=== PATIENT | female | born 1930 | race Caucasian/White ===

== ENCOUNTER 2021-05-15 01:02 | Inpatient (IN) | payer MEDICARE, BC ==
[2021-05-15] VITALS (45 sets, daily range): BP systolic 78–201; BP diastolic 20–133
[~2021-05-15] VITALS: Ht 152.4 cm; Wt 61.2 kg
--- NOTE | 2021-05-15 02:45 | NUR ---
REGIONAL OPERATIONS DIRECTOR NOTE ADMIT 89 YEAR OLD WHITE FEMALE TO ICU UNIT AT ROOM 259 FROM [facility] ER FOR SCALPER OPERATOR TOMORROW MORNING EDGE GLUE MACHINE TENDER DR ACOSTA.ALERT ORIENTED X4 VERBALLY RESPONSIVE ON 2L OXYGEN VIA NASAL CANNULA, O2:96%,NPO IV SITE ON RIGHT HAND AND RIGHT FOREARM INTACT PATENT ON HEPARIN DRIP 913 UNIT/HR,CONTINENT TO BOWEL/BLADDER,SAFETY MEASURE IMPLEMENT CALL LIGHT WITHIN REACH CONTINUE TO MONITOR
[2021-05-15] MEDS ORDERED: HEPARIN INFUSION/D5W 500 ML IV PRN (03:30)
[2021-05-15] MEDS: hydrALAZINE HCL IV 20 MG VIAL IV PRN (03:40)
--- NOTE | 2021-05-15 03:40 | NUR ---
RN NOTE BP IS ELEVATED SINCE ADMISSION 180-[address] MCDOWELL,SHE ORDERED HYDRALAZINE 10 MG IV PUSH PRN NOTED AND CARRIED OUT .
[2021-05-15] MEDS: IV D5/0.45 NACL 1,000 ML IV PRN ×2 (03:58→16:38)
[2021-05-15] MEDS ORDERED: ACETAMINOPHEN 325 MG TABLET PO PRN (04:00)
[2021-05-15] MEDS ORDERED: MAG HYDROX/AL HYDROX/SIMETH 30 ML UDC PO PRN (04:00)
[2021-05-15] MEDS ORDERED: MORPHINE SULFATE INJ 2 MG/ML DISP.SYRIN IV PRN (04:00)
[2021-05-15] MEDS ORDERED: Z GUARD REMEDY 2 OZ OINT TP PRN (04:00)
[2021-05-15] MEDS ORDERED: ONDANSETRON HCL/PF 4 MG/2 ML VIAL IVP PRN (04:00)
[2021-05-15] MEDS ORDERED: MAGNESIUM HYDROXIDE 30 ML UDC PO PRN (04:00)
[2021-05-15] MEDS: HEPARIN INFUSION/D5W 500 ML IV PRN (04:13)
[2021-05-15] MEDS ORDERED: HEPARIN SODIUM, PORCINE 5000 UNITS/1 ML VIAL IV ONE (04:30)
[2021-05-15 04:42] LABS: BASOPHILS % (AUTO) 0.2 % (0.0-2.0); HEMATOCRIT 33 % (33-45); LYMPHOCYTES # (AUTO) 1.3 K/uL (0.8-4.8); MEAN CORPUSCULAR HGB CONC 33 g/dl (31.0-36.0); MEAN CORPUSCULAR VOLUME 90 fL (82-100); MONOCYTES # (AUTO) 0.4 K/uL (0.1-1.30); MONOCYTES % (AUTO) 3.6 % (2.0-12.0); NEUTROPHILS # (AUTO) 9.1 K/uL (1.8-8.9); NEUTROPHILS % (AUTO) 84.2 % (43.0-81.0); PLATELET COUNT (AUTO) 194 K/uL (150-450); RED BLOOD CELL COUNT(AUTO) 3.67 MIL/uL (4.0-5.2); WHITE BLOOD COUNT (AUTO) 10.8 K/uL (4.3-11.0)
[2021-05-15] MEDS ORDERED: hydrALAZINE HCL IV 20 MG VIAL IV PRN (05:00)
[2021-05-15 05:07] LABS: ALANINE AMINOTRANSFERASE 68 U/L (12-78); ALBUMIN 3.3 g/dL (3.4-5.0); ALKALINE PHOSPHATASE 117 U/L (46-116); ASPARTATE AMINOTRANSFERASE 112 U/L (15-37); BILIRUBIN,TOTAL 0.4 mg/dL (0.2-1.0); CARBON DIOXIDE 28 mmol/L (21-32); CHLORIDE 102 mmol/L (98-107); CREATININE 1.5 mg/dL (0.6-1.3); GLUCOSE 133 mg/dL (74-106); POTASSIUM 4.2 mmol/L (3.5-5.1); SODIUM SERUM 140 mmol/L (136-145); TOTAL PROTEIN, SERUM 7.6 g/dL (6.4-8.2); UREA NITROGEN, BLOOD 44 mg/dL (7-18)
[2021-05-15] MEDS ORDERED: HYDR-4077 PO (05:23)
[2021-05-15] MEDS ORDERED: CLON0.1T PO (05:23)
[2021-05-15] MEDS ORDERED: METO-357 PO (05:23)
[2021-05-15] MEDS ORDERED: VALS160T2 PO (05:23)
[2021-05-15] MEDS ORDERED: HYDR12.55 PO (05:23)
[2021-05-15] MEDS ORDERED: RIVA10TA PO (05:23)
[2021-05-15] MEDS ORDERED: LEVO50TA8 PO (05:23)
[2021-05-15] MEDS ORDERED: BRIM5DRO2 OP (05:23)
[2021-05-15] MEDS ORDERED: FLEC50TA2 PO (05:23)
[2021-05-15] MEDS ORDERED: ATOR20TA PO (05:23)
--- NOTE | 2021-05-15 05:25 | NUR ---
RN NOTE BP STILL IS HIGH 173/[address] MCDOWELL SHE ORDERED GIVE ANOTHER DOSE OF HYDRALAZINE 10MG 0.5ML PRN EVERY 6 HOURS FOR SBP>160 IF THAT DOES NOT WORK START CLONIDINE 0.1 [id number] PRN NOTED AND CARRIED OUT
--- NOTE | 2021-05-15 05:54 | NUR ---
RN NOTE RECEIVED CRITICAL LAB RESULT TROPONIN 9.[address] MCDOWELL CONTINUE TO MONITOR.
[2021-05-15] MEDS ORDERED: CLONIDINE HCL 0.1 MG TABLET PO PRN ×2 (06:30→07:00)
--- NOTE | 2021-05-15 07:02 | NUR ---
RN NOTE PATIENT REMAINS ON ALERT ORIENTED X4 ABLE TO MAKE NEEDS KNOWN,ON 2L OXYGEN VIA NASAL CANNULA O2:98% IV SITE IS ON RIGHT FOREARM AND RIGHT HAND INTACT PATENT ON HEPARIN DRIP 913 UNIT/HR ON IV HYDRATION D51/2NS 75CC/HR,PATIENT IN NPO FOR MORNING PROCEDURE KEPT CLEAN AND DRY ALL THE TIME,KEPT COMFORTABLE ALL NEEDS MET ENDORSE NEXT COMING SHIFT FOR CONTINUATION OF CARE.
--- NOTE | 2021-05-15 07:30 | NUR ---
RN NOTES RECEIVED PATIENT A&OX4. SATURATING 98% ON 2L NC NOT IN ANY DISTRESS. SR ON BEDSIDE MONITOR, PT HAS A PACEMAKER. SBP 196 AT THIS TIME, NIGHT RN ADMINISTERED PRN CLONIDINE. PERIPHERAL LINES X2. HEPARIN RUNNING AT 913 UNITS/HR. D5 1/2 NS AT 75 ML/HR. SAFETY CHECKS IN PLACE. WILL CONTINUE TO MONITOR.
--- NOTE | 2021-05-15 07:33 | NUR ---
RN NOTE HEPATIN DRIP BOLUS NOT GIVEN BECAUSE SHE RECEIVED AT [facility],CONTINUE TO MONITOR.
[2021-05-15 08:36] LABS: IRON, SERUM 46 ug/dl (50-175); TOTAL IRON BINDING CAPACITY 369 ug/dl (250-450)
[2021-05-15] MEDS ORDERED: FLECAINIDE ACETATE 50 MG TABLET PO SCH (09:00)
[2021-05-15] MEDS ORDERED: Medication Not On Formulary EA (Brimonidine Tartrate/Timolol (Combigan Eye Drops) 5 ML) OP SCH (09:00)
[2021-05-15 09:18] LABS: FERRITIN 72 ng/mL (8-388)
[2021-05-15] MEDS: hydrALAZINE HCL 50 MG TABLET PO SCH ×3 (09:42→17:00)
[2021-05-15] MEDS: PANTOPRAZOLE 40 MG VIAL IV SCH (09:42)
[2021-05-15] MEDS: LEVOTHYROXINE SODIUM 50 MCG TABLET PO SCH (09:42)
[2021-05-15] MEDS: FLECAINIDE ACETATE (100 MG) 100 MG TABLET PO SCH ×2 (09:43→17:13)
[2021-05-15] MEDS: TIMOLOL 0.5% SOLN OPHTH 5 ML BOTTLE EACHEYE SCH ×2 (09:44→17:13)
[2021-05-15] MEDS: NITROGLYCERIN 30 GM TUBE TP SCH ×2 (09:44→21:22)
[2021-05-15] MEDS: BRIMONIDINE TARTRATE OPHT SOLN 5 ML BOTTLE EACHEYE SCH ×2 (09:44→17:14)
--- NOTE | 2021-05-15 10:00 | NUR ---
RN NOTE HEPARIN DOSE ADJUSTED PER PROTOCOL. REPEAT APTT DUE 1600HRS.
--- NOTE | 2021-05-15 10:30 | NUR ---
RN NOTE ONE EPISODE OF VOMITING PREVIOUSLY INGESTED FOOD. ANTIEMETICS GIVEN WITH GOOD EFFECT. URINE INCONTINENT. PAD IN PLACE AND KEPT DRY. LINENS CHANGED.
[2021-05-15] MEDS: METOPROLOL TARTRATE 50 MG TABLET PO SCH ×3 (12:00→23:29)
--- NOTE | 2021-05-15 18:35 | NUR ---
RN NOTES PATIENT REMAINS A&OX4. SATURATING 99% ON 2L NC NOT IN ANY DISTRESS. SR ON BEDSIDE MONITOR, PT HAS A PACEMAKER. SBP WELL IN CONTROL AT THIS TIME,PERIPHERAL LINES X2. ML JAYSON IN PLACE. HEPARIN RUNNING AT 500 UNITS/HR WITH PTT DUE MIDNIGHT. D5 1/2 NS AT 75 ML/HR ON FLOW. SAFETY CHECKS IN PLACE. WILL ENDORSE TO NIGHT RN FOR CONTINUITY OF CARE.
--- NOTE | 2021-05-15 19:45 | NUR ---
RN NOTE RECEIVED PT WATCHING TV, ALERT AND ORIENTED X4, ON O2 VIA NC AT 2L. DENIES ANY SOB DENIES PAIN AT THIS TIME. PT ON HEPARIN DRIP AT 500U/HR AND D5 1/2 NS AT 75ML/HR, MIDLINE ON JAYSON AND IV ON RFA AND RHAND PATENT AND INTACT. ALL SAFETY MEASURES IN PLACE. CALL LIGHT WITHIN REACH. WILL CONTINUE TO MONITOR.
[2021-05-15] MEDS: ATORVASTATIN 10 MG TABLET PO SCH (21:21)
[2021-05-16] VITALS (39 sets, daily range): BP systolic 108–182; BP diastolic 20–134
--- NOTE | 2021-05-16 00:45 | NUR ---
RN NOTE APTT RESULTS 55.1. CONTINUE ON THE SAME RATE 500U/HR PER PROTOCOL. CHARGE NURSE MADE AWARE.
[2021-05-16 04:15] LABS: BASOPHILS # (AUTO) 0.1 K/uL (0.0-0.2); BASOPHILS % (AUTO) 0.6 % (0.0-2.0); HEMATOCRIT 28 % (33-45); HEMOGLOBIN 9.1 g/dL (11.5-14.8); LYMPHOCYTES # (AUTO) 1.3 K/uL (0.8-4.8); MEAN CORPUSCULAR HGB CONC 33 g/dl (31.0-36.0); MEAN CORPUSCULAR VOLUME 91 fL (82-100); MONOCYTES # (AUTO) 0.8 K/uL (0.1-1.30); MONOCYTES % (AUTO) 7.4 % (2.0-12.0); NEUTROPHILS # (AUTO) 8.6 K/uL (1.8-8.9); PLATELET COUNT (AUTO) 176 K/uL (150-450); RED BLOOD CELL COUNT(AUTO) 3.03 MIL/uL (4.0-5.2); WHITE BLOOD COUNT (AUTO) 10.8 K/uL (4.3-11.0)
[2021-05-16 04:33] LABS: CALCIUM, SERUM 8.2 mg/dL (8.5-10.1); CARBON DIOXIDE 28 mmol/L (21-32); CHLORIDE 99 mmol/L (98-107); CREATININE 1.5 mg/dL (0.6-1.3); GLUCOSE 196 mg/dL (74-106); MAGNESIUM 1.7 mg/dL (1.8-2.4); PHOSPHORUS 4.3 mg/dL (2.5-4.9); POTASSIUM 3.4 mmol/L (3.5-5.1); SODIUM SERUM 136 mmol/L (136-145); UREA NITROGEN, BLOOD 36 mg/dL (7-18)
[2021-05-16 04:38] LABS: CHOLESTEROL 132 mg/dL (<200); HDL CHOLESTEROL 63 mg/dL (40-60); LDL 60 mg/dL (0-99); TRIGLYCERIDES 83 mg/dL (30-150)
[2021-05-16] MEDS: hydrALAZINE HCL IV 20 MG VIAL IV PRN (04:45)
--- NOTE | 2021-05-16 04:45 | NUR ---
RN NOTE PT BP AT 174/73. PT DENIES ANY PAIN DENIES SOB. NOT IN ANY DISTRESS. HYDRALAZINE PRN GIVEN ORDERED. WILL CONTINUE TO MONITOR.
[2021-05-16] MEDS: IV D5/0.45 NACL 1,000 ML IV PRN ×2 (04:49→22:59)
[2021-05-16] MEDS: HEPARIN INFUSION/D5W 500 ML IV PRN (05:03)
[2021-05-16] MEDS: METOPROLOL TARTRATE 50 MG TABLET PO SCH ×4 (06:22→23:03)
--- NOTE | 2021-05-16 07:10 | NUR ---
RN NOTE PT SLEEPING, AROUSES EASILY. CONTINUE ON O2 AT 2L. NO RESP DISTRESS NOTED, DENIES ANY SOB. PTS BP WENT DOWN TO 140S. DENIES ANY PAIN. TELE MONITOR SHOWS AV PACING. CONTINUE ON IVF D5 1/2NS AT 75ML AND HEPARIN DRIP AT 500U/HR. NO SIGNS OF BLEEDING WERE NOTED. ALL SAFETY MEASURES MAINTAINED. CALL LIGHT WITHIN REACH AT ALL TIMES. KEPT CLEAN AND DRY. ENDORSED TO NEXT SHIFT NURSE FOR MANINDER.
--- NOTE | 2021-05-16 07:30 | NUR ---
OPENING NOTE: PT ALERT OX3, UNKNOWN WHEN HEART CATH IS TO BE DONE. PT DENIES CHEST PAIN OR ANY PAIN AT THIS TIME. PT ON HEPARIN GTT AT 500 UNITS/HR. PT CHECKED ON HOURLY AND PRN BY NURSING STAFF.
[2021-05-16] MEDS: BRIMONIDINE TARTRATE OPHT SOLN 5 ML BOTTLE EACHEYE SCH ×2 (08:24→18:08)
[2021-05-16] MEDS: PANTOPRAZOLE 40 MG VIAL IV SCH (08:25)
[2021-05-16] MEDS: TIMOLOL 0.5% SOLN OPHTH 5 ML BOTTLE EACHEYE SCH ×2 (08:25→18:08)
[2021-05-16] MEDS: FLECAINIDE ACETATE (100 MG) 100 MG TABLET PO SCH ×2 (08:26→18:09)
[2021-05-16] MEDS: NITROGLYCERIN 30 GM TUBE TP SCH ×2 (08:26→21:59)
[2021-05-16] MEDS: hydrALAZINE HCL 50 MG TABLET PO SCH ×3 (08:26→18:09)
[2021-05-16] MEDS: LEVOTHYROXINE SODIUM 50 MCG TABLET PO SCH (08:27)
[2021-05-16] MEDS ORDERED: hydrALAZINE HCL 50 MG TABLET PO SCH (09:00)
--- NOTE | 2021-05-16 09:06 | NUR ---
PT SIGNED CONSENT FOR LEFT HEART CATH PER REQUEST FROM DR. MORENO. PT'S PTT IS 52.3, THERAPEUTIC PER ORDERS, NO CHANGE IN GTT. NEXT PTT IN AM
[2021-05-16] MEDS ORDERED: IV SET PRIMARY PUMP SET 1 EA INFUS.SET MC ONE (09:22)
[2021-05-16] MEDS ORDERED: IV NS 0.9% 1,000 ML ONE (09:22)
[2021-05-16] MEDS ORDERED: LIDOCAINE HCL/MPF 1% 30 ML VIAL IJ ONE (09:22)
[2021-05-16] MEDS ORDERED: IODIXANOL 150 ML IV ONE (09:22)
[2021-05-16] MEDS ORDERED: NITROGLYCERIN IN 5 % DEXTROSE 250 ML IV ONE (09:22)
--- NOTE | 2021-05-16 09:36 | NUR ---
PT LEFT FOR VISUAL EDUCATION DIRECTOR AT THIS TIME. HEPARIN GTT HELD PER DR MORENO. MAG AND POTASSIUM DOSES WILL BE GIVEN AFTER VISUAL EDUCATION DIRECTOR.
[2021-05-16] MEDS ORDERED: MIDAZOLAM HCL 2 MG/2ML VIAL ONE (09:59)
[2021-05-16] MEDS ORDERED: methylPREDNISolone SOD SUCC 125 MG/2ML VIAL ONE (09:59)
[2021-05-16] MEDS ORDERED: FENTANYL PF 100MCG/2ML AMPUL ONE (10:01)
[2021-05-16] MEDS ORDERED: diphenhydrAMINE HCL 50 MG/ML VIAL ONE (10:37)
[2021-05-16] MEDS ORDERED: HEPARIN SODIUM, PORCINE 5000 UNITS/1 ML VIAL ONE (10:41)
[2021-05-16] MEDS ORDERED: HEPARIN SODIUM, PORCINE 1,000 UNIT/ML VIAL ONE (10:41)
[2021-05-16] MEDS ORDERED: IODIXANOL 320MG/ML 50 ML IV ONE (10:42)
[2021-05-16] MEDS ORDERED: NICARDIPINE HCL 25 MG/10 ML VIAL IV ONE (10:47)
[2021-05-16] MEDS ORDERED: TICAGRELOR 90 MG TABLET PO ONE (10:49)
--- NOTE | 2021-05-16 11:25 | NUR ---
PT RETURNED FROM HEART CATH AT THIS TIME. PT CALM, RESTING. TR BAND ON RIGHT WRIST, GOOD PULSE TO RIGHT WRIST. PER REPORT AND MD ORDERS TR BAND WAS APPLIED AT 1104, AIR CAN START TO BE REMOVED AT 1304 PER PROTOCOL. PT DENIES PAIN OR NEEDS AT THIS TIME. HEPARIN GTT DC'D PER DR MORENO. DR VIRGEN CONTACTED REGARDING STARTING PATIENT ON A DIET. PT CHECKED ON HOURLY AND PRN BY NURSING STAFF.
[2021-05-16] MEDS: Magnesium 1GM/D5W 100ML PREMIX 100 ML IV SCH ×2 (11:57→13:00)
[2021-05-16] MEDS: POTASSIUM CHLORIDE 20 MEQ TAB.PRT.SR PO SCH ×2 (11:57→13:00)
[2021-05-16] MEDS ORDERED: POTASSIUM CL. PREMIX PERIPHER. 50 ML IV SCH (12:00)
[2021-05-16] MEDS: SOD FERRIC GLUC 125 MG in IV NS 0.9% 100 ML IV SCH (18:07)
--- NOTE | 2021-05-16 19:18 | NUR ---
END OF SHIFT NOTE: TR BAND REMOVED WITHOUT DIFFICULTY PER MD ORDERS, SOME OOZING CALLED FOR AIR TO BE REINSTILLED AT ONE POINT BUT TR BAND WAS ULTIMATELY REMOVED AT 1720, TEGADERM APPLIED. NO SWELLING OR BLEEDING NOTED. PT DENIES PAIN. HEPARIN GTT WAS DC'D AFTER HEART CATH. PT CHECKED ON HOURLY AND PRN BY NURSING STAFF.
--- NOTE | 2021-05-16 19:40 | NUR ---
RN NOTES RECEIVED PATIENT ASLEEP ON BED. NO ACUTE RESPIRATORY DISTRESS TOLERATED O2 2LPM VIA NC SATURATION 97%. AV PACING ON MONITOR. S/P CARDIAC CATH THIS MORNING , S/P TR BAND REMOVED. NO ACTIVE BLEEDING PRESENT. DENIES CHEST PAIN OR SOB. IV SITE ON JAYSON MIDLINE AND RIGHT HAND WITH D51/2 NS @ 75 ML/HR TOLERATED WELL. KEPT PT COMFORTABLE .
[2021-05-16] MEDS: ATORVASTATIN 10 MG TABLET PO SCH (21:57)
[2021-05-17] VITALS (20 sets, daily range): BP systolic 97–187; BP diastolic 30–88
[2021-05-17] MEDS: hydrALAZINE HCL IV 20 MG VIAL IV PRN (03:51)
[2021-05-17] MEDS: METOPROLOL TARTRATE 50 MG TABLET PO SCH ×4 (06:21→23:53)
[2021-05-17] MEDS: CLONIDINE HCL 0.1 MG TABLET PO PRN (06:22)
--- NOTE | 2021-05-17 07:27 | NUR ---
RN NOTES PATIENT ASLEEP WELL ON BED. BREATHING EVEN AND UNLABORED. DENIES PAIN. AFEBRILE. NO ACTIVE BLEEDING PRESENT FROM S/P CARDIAC CATH APPROACHING RIGHT WRIST. NO SIGNIFICANT CHANGE OF CONDITION TRUOGHOUT THE SHIFT. HYPERTENTION SBP >170-180'S WITH PRN ORDERED ADMISNITERED ORDERED. WILL CONTINUE POC.
--- NOTE | 2021-05-17 07:30 | NUR ---
OPENING NOTE: REPORT RECEIVED FROM SARA ERIC. PT ALERT OX3, ON 15L NON REBREATHER. NO DRIPS INFUSING AT THIS TIME. PT CHECKED ON HOURLY AND PRN BY NURSING STAFF. Addendum: 05/17/21 at 1027 by SAVANAH FELIZ RN WRONG PATIENT, DISREGARD
--- NOTE | 2021-05-17 07:30 | NUR ---
OPENING NOTE: REPORT RECEIVED FROM ELEAZAR ERIC. PT ALERT OX3, SLEPT WELL PER REPORT. PT ON 2LNC. PT CHECKED ON HOURLY AND PRN BY NURSING STAFF.
[2021-05-17 08:14] LABS: BASOPHILS % (AUTO) 0.2 % (0.0-2.0); HEMATOCRIT 27 % (33-45); HEMOGLOBIN 8.9 g/dL (11.5-14.8); LYMPHOCYTES # (AUTO) 0.5 K/uL (0.8-4.8); LYMPHOCYTES % (AUTO) 5.5 % (20.0-44.0); MEAN CORPUSCULAR HGB CONC 34 g/dl (31.0-36.0); MEAN CORPUSCULAR VOLUME 90 fL (82-100); MONOCYTES # (AUTO) 0.4 K/uL (0.1-1.30); MONOCYTES % (AUTO) 4.3 % (2.0-12.0); NEUTROPHILS # (AUTO) 8.8 K/uL (1.8-8.9); PLATELET COUNT (AUTO) 180 K/uL (150-450); RED BLOOD CELL COUNT(AUTO) 2.95 MIL/uL (4.0-5.2); WHITE BLOOD COUNT (AUTO) 9.7 K/uL (4.3-11.0)
[2021-05-17] MEDS: BRIMONIDINE TARTRATE OPHT SOLN 5 ML BOTTLE EACHEYE SCH ×2 (08:36→17:12)
[2021-05-17] MEDS: LEVOTHYROXINE SODIUM 50 MCG TABLET PO SCH (08:37)
[2021-05-17] MEDS: TIMOLOL 0.5% SOLN OPHTH 5 ML BOTTLE EACHEYE SCH ×2 (08:37→17:12)
[2021-05-17] MEDS: hydrALAZINE HCL 50 MG TABLET PO SCH ×3 (08:39→17:00)
[2021-05-17] MEDS: ISOSORBIDE DINITRATE (20MG) 20 MG TABLET PO SCH ×2 (08:39→17:07)
[2021-05-17 08:40] LABS: ALBUMIN 2.7 g/dL (3.4-5.0); BILIRUBIN,TOTAL 0.3 mg/dL (0.2-1.0); CREATININE 1.3 mg/dL (0.6-1.3); PHOSPHORUS 2.7 mg/dL (2.5-4.9); POTASSIUM 4.1 mmol/L (3.5-5.1); TOTAL PROTEIN, SERUM 6.8 g/dL (6.4-8.2)
[2021-05-17] MEDS: FLECAINIDE ACETATE (100 MG) 100 MG TABLET PO SCH ×2 (08:40→17:00)
[2021-05-17] MEDS: PANTOPRAZOLE 40 MG TABLET.DR PO SCH (08:40)
[2021-05-17 08:48] LABS: CALCIUM, SERUM 8.1 mg/dL (8.5-10.1); MAGNESIUM 2.5 mg/dL (1.8-2.4)
[2021-05-17] MEDS ORDERED: TICAGRELOR 90 MG TABLET PO SCH (09:00)
[2021-05-17] MEDS: TICAGRELOR 90 MG TABLET PO SCH ×2 (09:44→17:09)
--- NOTE | 2021-05-17 13:00 | NUR ---
PT AMBULATED IN HALLS WITH 2L O2 ASSISTED BY RN AND PT'S SON LUH. PT MADE 1 LAP AROUND THE ICU WITHOUT DIFFICULTY ONLY GETTING TIRED RIGHT BEFORE SHE REACHED HER ROOM. PT HELPED BACK TO BED WITH ALL CLEAN BEDDING. PT DENIED PAIN OR LIGHTHEADEDNESS DURING WALK.
--- NOTE | 2021-05-17 14:17 | NUR ---
PHONE REPORT GIVEN TO MARTELL ERIC FOR TRANSPORT TO ROOM 306-1
--- NOTE | 2021-05-17 14:30 | NUR ---
PT TRANSFERRED TO TELE BED 306-1 IN BED WITH 2 RN'S AND STUDENT NURSE TRANSPORTING PATIENT WITH ALL PATIENT BELONGINGS AND PT EYE DROPS. BELONGINGS LIST REVIEWED BY BOTH DRIVABILITY TECHNICIAN AND MARTELL RN, RECEIVING RN. MARTELL ERIC IN PT ROOM WHEN DRIVABILITY TECHNICIAN LEFT ROOM.
[2021-05-17] MEDS: SOD FERRIC GLUC 125 MG in IV NS 0.9% 100 ML IV SCH (14:42)
--- NOTE | 2021-05-17 14:55 | NUR ---
TELE/RN NOTES RECEIVED REPORT FROM SAVANAH ICU NURSE. PATIENT IS ALERT AND ORIENTED X4. PATIENT IS ON 2 L OXYGEN VIA NASAL CANNULA SATURATING WELL. PATIENT IN NO APPARENT RESPIRATORY DISTRESS NOTED. NO COMPLAINED OF PAIN AT THIS TIME. WILL CONTINUE TO MONITOR.
--- NOTE | 2021-05-17 18:55 | NUR ---
TELE/RN CLOSING PATIENT IS ON BED ALERT AND ORIENTED X4. PATIENT IS ON 2L OXYGEN VIA NASAL CANNULA SATURATION 98%. PATIENT IN NO APPARENT RESPIRATORY DISTRESS NOTED. NO COMPLAINED OF PAIN NOTED AT THIS TIME. SEEN AND EXAMINED BY MD WITH ORDERS MADE AND CARRIED OUT ALL DUE MEDICATIONS WAS GIVEN. IV ACCESS AT RIGHT UPPER ARM MIDLINE RIGHT HAND # 20 G PATENT AND INTACT. SAFETY PRECAUTION WAS IN PLACED, BED IN LOWEST POSITION AND LOCKED X2. CALL LIGHT WITHIN REACH. WILL ENDORSED TO PLANT FACILITIES TECHNICIAN FOR MANINDER.
--- NOTE | 2021-05-17 19:30 | NUR ---
TELERN AWAKE, ON THE PHONE. PRIVACY PROVIDED. TO CONTINUE.
--- NOTE | 2021-05-17 20:46 | NUR ---
TELERN FULLY AWAKE, ALL NEEDS ATTENDED. A/O X4 PLAN OF CARE AND MEDICATION REGIMEN DISCUSSED WITH PATIENT WELL UNDERSTOOD. A PACING ON THE MONITOR RATE OF 60. NO SOB, PAINFREE, REMINDED TO CALL STAFF FOR ANY ASSISTANCE OR DISCOMFORTS. CALL LIGHT WITHIN REACH. CONTINUED MONITORING.
[2021-05-17] MEDS: ATORVASTATIN 10 MG TABLET PO SCH (22:33)
[2021-05-17] MEDS: ZOLPIDEM TARTRATE 5 MG TABLET PO PRN (22:47)
[2021-05-18] VITALS: BP 127/59
--- NOTE | 2021-05-18 02:00 | NUR ---
TELERN REMAINS AV PACING ON THE MONITOR. PAINFREE, STABLE.
--- NOTE | 2021-05-18 02:15 | NUR ---
TELERN RECEIVED VIA BED ACCPD BY RESPIRATORY THERAPIST, VENT DEPENDENT PATIENT NONVERBAL. NO RESP DISTRESS. PER MONITOR ST 0N 110s.. REPOSITIONED, VENT SETTINGS FOLLOWS: PORTEX 8, AC 18, TV 450, FI02 30%, AND P5. WILL RESUME GT FEEDINGS AT 5 AM SCHEDULED. F/C TO GRAVITY, PT ON LINE HOLIDAY TILL NEW HD CATH REPLACE. CONTINUED MONITORING. Addendum: 05/18/21 at 0259 by JONI FROST RN DISREGARD ABOVE DOCUMENTATION. ABOVE DOCUMENTATION FOR ANOTHER PATIENT.
[2021-05-18 04:00] VITALS: BP 174/74
[2021-05-18] MEDS: METOPROLOL TARTRATE 50 MG TABLET PO SCH ×3 (06:06→17:10)
--- NOTE | 2021-05-18 06:41 | NUR ---
TELERN SEEN BY MD, POSSIBLE DISCHARGE TODAY.
[2021-05-18 06:44] LABS: BASOPHILS % (AUTO) 0.1 % (0.0-2.0); HEMATOCRIT 25 % (33-45); HEMOGLOBIN 8.3 g/dL (11.5-14.8); LYMPHOCYTES # (AUTO) 0.6 K/uL (0.8-4.8); LYMPHOCYTES % (AUTO) 4.9 % (20.0-44.0); MEAN CORPUSCULAR HGB CONC 33 g/dl (31.0-36.0); MEAN CORPUSCULAR VOLUME 90 fL (82-100); MONOCYTES # (AUTO) 0.8 K/uL (0.1-1.30); NEUTROPHILS # (AUTO) 10.5 K/uL (1.8-8.9); PLATELET COUNT (AUTO) 215 K/uL (150-450); WHITE BLOOD COUNT (AUTO) 11.9 K/uL (4.3-11.0)
[2021-05-18 07:48] LABS: ALBUMIN 2.6 g/dL (3.4-5.0); BILIRUBIN,TOTAL 0.5 mg/dL (0.2-1.0); CALCIUM, SERUM 8.3 mg/dL (8.5-10.1); CREATININE 1.3 mg/dL (0.6-1.3); MAGNESIUM 2.2 mg/dL (1.8-2.4); PHOSPHORUS 2.5 mg/dL (2.5-4.9); TOTAL PROTEIN, SERUM 6.6 g/dL (6.4-8.2)
[2021-05-18] MEDS: TIMOLOL 0.5% SOLN OPHTH 5 ML BOTTLE EACHEYE SCH ×2 (08:00→17:22)
--- NOTE | 2021-05-18 08:00 | NUR ---
RN OPENING NOTE PT IS AWAKE IN BED. ON 2L NC WITH SOB ON EXERTION. NO RESPIRATORY DISTRESS. A/O X4 AND SPANISH SPEAKING. NO COMPLAINT OF PAIN OR NAUSEA. ON MECHANICAL INSULATOR. NO EDEMA PRESENT. ON BEDREST WITH DIAPER PRESENT. UNSTEADY GAIT. SKIN IS INTACT. IV PRESENT ON JAYSON MIDLINE AND R HAND 20G. FLUSHES WELL. LABS AND ORDERS REVIEWED. SAFETY MEASURES IN PLACE. SIDE RAILS RAISED. BED LOWERED. CALL LIGHT WITHIN REACH. WILL CONTINUE TO MONITOR.
[2021-05-18] MEDS: CLONIDINE HCL 0.1 MG TABLET PO PRN (08:03)
[2021-05-18] MEDS: VALSARTAN 80 MG TABLET PO SCH (08:04)
[2021-05-18] MEDS: ISOSORBIDE DINITRATE (20MG) 20 MG TABLET PO SCH ×2 (08:04→17:10)
[2021-05-18 08:05] VITALS: BP 173/78
[2021-05-18] MEDS: PANTOPRAZOLE 40 MG TABLET.DR PO SCH (08:05)
[2021-05-18] MEDS: LEVOTHYROXINE SODIUM 50 MCG TABLET PO SCH (08:05)
[2021-05-18] MEDS: hydrALAZINE HCL 50 MG TABLET PO SCH ×3 (08:06→17:10)
[2021-05-18] MEDS: TICAGRELOR 90 MG TABLET PO SCH ×2 (08:07→17:12)
[2021-05-18] MEDS: BRIMONIDINE TARTRATE OPHT SOLN 5 ML BOTTLE EACHEYE SCH ×2 (09:00→17:22)
[2021-05-18] MEDS: FLECAINIDE ACETATE (100 MG) 100 MG TABLET PO SCH ×2 (11:21→17:13)
[2021-05-18 12:00] VITALS: BP 137/86
[2021-05-18] MEDS: SOD FERRIC GLUC 125 MG in IV NS 0.9% 100 ML IV SCH (13:51)
[2021-05-18 15:55] VITALS: BP 144/66
--- NOTE | 2021-05-18 18:41 | NUR ---
RN CLOSING NOTE PT IS AWAKE IN BED. ON 2L NC WITH SOB ON EXERTION. NO RESPIRATORY DISTRESS. A/O X4 AND YORUBA SPEAKING. NO COMPLAINT OF PAIN OR NAUSEA. ON VIOLIN RESTORER. NO EDEMA PRESENT. ON BEDREST WITH DIAPER PRESENT. UNSTEADY GAIT. COMMODE PLACED AT BEDSIDE. SKIN IS INTACT. IV PRESENT ON JAYSON MIDLINE AND R HAND 20G. FLUSHES WELL. LABS AND ORDERS REVIEWED. SAFETY MEASURES IN PLACE. SIDE RAILS RAISED. BED LOWERED. CALL LIGHT WITHIN REACH. REPORT TO BE GIVEN TO NIGHT NURSE FOR MANINDER.
--- NOTE | 2021-05-18 19:30 | NUR ---
STRIPER SPRAY GUN NOTES RECEIVED LYING COMFORTABLY ON BED,ON LEFT SIDE POSITION,BREATHING REGULAR,NOT IN ANY FORM OF DISTRESS,WITH RIGHT UPPER ARM MIDLINE,RIGHT HAND SALINE LOCK,BOTH INTACT AND PATENT.INCONTINENT OF B/B BUT SOMETIMES SHE GOES TO THE BATHROOM WITH ASSIST.FALL RISK,FALL PRECAUTION OBSERVED,BED ON LOWEST POSITION AND LOCKED,CALL LIGHT IN REACH,NEEDS ANTICIPATED.
--- NOTE | 2021-05-18 19:52 | NUR ---
RETAIL SALES TEAMMATE NOTES AV-PACING ON TELE MONITOR,PACER ON LEFT UPPER CHEST WALL.
[2021-05-18 20:00] VITALS: BP 107/69
[2021-05-18] MEDS: ATORVASTATIN 10 MG TABLET PO SCH (21:34)
[2021-05-19] VITALS: BP 141/60
[2021-05-19] MEDS: METOPROLOL TARTRATE 50 MG TABLET PO SCH ×5 (00:01→23:25)
[2021-05-19] MEDS: CLONIDINE HCL 0.1 MG TABLET PO PRN (03:42)
--- NOTE | 2021-05-19 03:42 | NUR ---
BULK SAUSAGE CASING TIER OFF NOTES BP 168/70.HR-64,MEDICATED WITH CLONIDINE 0.1MG PO FOR SBP ABOVE 160 WITH ORDER
[2021-05-19 04:00] VITALS: BP 168/70
--- NOTE | 2021-05-19 05:55 | NUR ---
DOCTOR NATUROPATHIC NOTES BP THIS TIME 153/66,HR-66 DUE LOPRESSOR 50MG PO GIVEN,TAKEN WELL.
--- NOTE | 2021-05-19 06:15 | NUR ---
LEARNING COACH NOTES FAIRLY RESTED AT NIGHT,BLOOD PRESSURE WENT DOWN TO 153/66.NO SOB NOTED,AFEBRILE.FOR DISCHARGE PLANNING GOING TO ARU OR SNF.
[2021-05-19] MEDS ORDERED: CEFEPIME 2 GM in IV D5W 100 ML IV SCH (07:00)
[2021-05-19 08:00] VITALS: BP 148/79
[2021-05-19] MEDS: FLECAINIDE ACETATE (100 MG) 100 MG TABLET PO SCH ×2 (08:02→17:25)
[2021-05-19] MEDS: PANTOPRAZOLE 40 MG TABLET.DR PO SCH (08:09)
[2021-05-19] MEDS: LEVOTHYROXINE SODIUM 50 MCG TABLET PO SCH (08:09)
[2021-05-19] MEDS: CEFEPIME 1 GM in IV D5W 50 ML IV SCH (09:03)
[2021-05-19] MEDS: TIMOLOL 0.5% SOLN OPHTH 5 ML BOTTLE EACHEYE SCH ×2 (09:08→17:26)
[2021-05-19] MEDS: BRIMONIDINE TARTRATE OPHT SOLN 5 ML BOTTLE EACHEYE SCH ×2 (09:08→17:25)
[2021-05-19] MEDS: hydrALAZINE HCL 50 MG TABLET PO SCH ×3 (09:09→17:23)
[2021-05-19] MEDS: VALSARTAN 80 MG TABLET PO SCH (09:10)
[2021-05-19] MEDS: ISOSORBIDE DINITRATE (20MG) 20 MG TABLET PO SCH ×2 (09:10→17:24)
[2021-05-19] MEDS: TICAGRELOR 90 MG TABLET PO SCH ×2 (09:44→17:24)
[2021-05-19] MEDS: VANCOMYCIN 1 GM in IV D5W 250ml IV SCH (09:44)
--- NOTE | 2021-05-19 10:12 | NUR ---
RN OPENING NOTE PT IS AWAKE IN BED. ON 2L NC WITH SOB ON EXERTION. NO RESPIRATORY DISTRESS. A/O X4 AND MALIAN SPEAKING. NO COMPLAINT OF PAIN OR NAUSEA. ON STEEL WHEEL ENGRAVER. NO EDEMA PRESENT. ON BEDREST WITH COMMODE AT BEDSIDE. UNSTEADY GAIT. SKIN IS INTACT. IV PRESENT ON JAYSON MIDLINE AND R HAND 20G. FLUSHES WELL. LABS AND ORDERS REVIEWED. SAFETY MEASURES IN PLACE. SIDE RAILS RAISED. BED LOWERED. CALL LIGHT WITHIN REACH. WILL CONTINUE TO MONITOR.
[2021-05-19] MEDS: ENSURE ENLIVE 237 ML LIQUID (VANILLA) PO SCH ×2 (12:02→17:26)
[2021-05-19] MEDS: SOD FERRIC GLUC 125 MG in IV NS 0.9% 100 ML IV SCH (13:33)
[2021-05-19 16:00] VITALS: BP 132/87
--- NOTE | 2021-05-19 18:23 | NUR ---
RN CLOSING NOTE PT IS AWAKE IN BED. ON 2L NC WITH SOB ON EXERTION. NO RESPIRATORY DISTRESS. A/O X4 AND ROMANSH SPEAKING. NO COMPLAINT OF PAIN OR NAUSEA. ON SCRAPE GATHERER. NO EDEMA PRESENT. ON BEDREST WITH DIAPER PRESENT. UNSTEADY GAIT. COMMODE PLACED AT BEDSIDE. SKIN IS INTACT. IV PRESENT ON JAYSON MIDLINE AND R HAND 20G. FLUSHES WELL. LABS AND ORDERS REVIEWED. SAFETY MEASURES IN PLACE. SIDE RAILS RAISED. BED LOWERED. CALL LIGHT WITHIN REACH. REPORT TO BE GIVEN TO NIGHT NURSE FOR MANINDER.
--- NOTE | 2021-05-19 19:15 | NUR ---
ASSISTANT DIRECTOR OF PLANT OPERATIONS NOTES RECEIVED ON BED ON HIGH FOWLERS POSITION, DOOZING OFF,EASILY AROUSABLE TO VERBAL STIMULI,BREATHING NON LABORED,O2 IN USED AT 2L/NC TO KEEP O2 SAT ABOVE 90%.RIGHT UPPER ARM MIDLINE INTACT AND PATENT.NOTED CONSUMED ONLY ABOUT 25% ON HER DINNER FOOD.ENCOURAGED TO DRINK HER FOOD SUPPLEMENT ENSURE ORDERED.FALL PRECAUTION OBSERVED,BED ON LOWEST POSITION AND LOCKED.BED ALAR, TRIGGERED.CALL LIGHT IN REACH,NEEDS ANTICIPATED.
[2021-05-19 20:00] VITALS: BP 98/50
--- NOTE | 2021-05-19 20:30 | NUR ---
ORTHOPHOTOGRAPHY TECHNICIAN NOTES AV PACING ON TELE MONITOR,RATE-60
[2021-05-19 20:55] VITALS: BP 98/50
[2021-05-19] MEDS: ATORVASTATIN 10 MG TABLET PO SCH (21:26)
--- NOTE | 2021-05-19 21:45 | NUR ---
MANAGER STORAGE NOTES AWAKE THIS TIME WATCHING TV PROGRAM.DUE PO MEDS ADMINISTERED,NOTED SHE FINISHED HER ENSURE 1 BOTTLE.
[2021-05-19] MEDS: ZOLPIDEM TARTRATE 5 MG TABLET PO PRN (23:29)
--- NOTE | 2021-05-19 23:29 | NUR ---
RETAIL STORE ASSISTANT NOTES C/O INSOMNIA,AMBIEN 5MG PO GIVEN ORDERED PRN FOR SLEEP
[2021-05-20] VITALS (8 sets, daily range): BP systolic 116–161; BP diastolic 50–82
[2021-05-20] MEDS: VANCOMYCIN 1 GM in IV D5W 250ml IV SCH ×2 (03:22→21:09)
[2021-05-20] MEDS: METOPROLOL TARTRATE 50 MG TABLET PO SCH ×4 (05:15→23:44)
--- NOTE | 2021-05-20 06:21 | NUR ---
ACCOUNTS PAYABLES CLERK NOTES SLEPT 4 HOURS WITH AMBIEN,DENIES PAIN DISCOMFORTS,ABLE TO TURN FORM SIDE TO SIDE,IV ABX TOLERATED WELL.FOR D/C PLANNING EITHER ARU VS SNF.IN NO ACUTE DISTRESS.
--- NOTE | 2021-05-20 07:07 | NUR ---
MS JEANETH OPENING NOTES PT RECEIVED IN BED AWAKE A/O X4. ABLE TO MAKE NEEDS KNOWN, DENIES PAIN OR ANY DISCOMFORTS AT THIS TIME. ON VIA N/C AT 2LPM, TOLERATING WELL WITH NO SOB NOTED. JAYSON MIDLINE INTACT, PATENT AND FLUSHES WELL. SAFETY MEASURES IN PLACE: BED IN LOWEST LOCKED POSITION, SIDE-RAILS UP X2 AND CALL LIGHT WITHIN REACH. WILL CONTINUE TO MONITOR. Addendum: 05/20/21 at 0720 by MAXIMO JUSTICE RN CORRECTION: PT IS ON EXTERNAL CLINICAL PHARMACY COORDINATOR WITH CURRENT READING OF A-PACING WITH HR ON THE 60'S, NO C/O CARDIAC DISTRESS VOICED AT THIS TIME. WILL CONTINUE TO MONITOR.
[2021-05-20 07:30] LABS: CALCIUM, SERUM 8.2 mg/dL (8.5-10.1); CREATININE 1.3 mg/dL (0.6-1.3); POTASSIUM 3.5 mmol/L (3.5-5.1)
[2021-05-20] MEDS: PANTOPRAZOLE 40 MG TABLET.DR PO SCH (07:51)
[2021-05-20] MEDS: CEFEPIME 1 GM in IV D5W 50 ML IV SCH (07:55)
[2021-05-20] MEDS: ENSURE ENLIVE 237 ML LIQUID (VANILLA) PO SCH ×3 (08:05→17:08)
[2021-05-20] MEDS: TICAGRELOR 90 MG TABLET PO SCH ×2 (08:11→16:35)
[2021-05-20] MEDS: FLECAINIDE ACETATE (100 MG) 100 MG TABLET PO SCH ×2 (08:11→16:34)
[2021-05-20] MEDS: LEVOTHYROXINE SODIUM 50 MCG TABLET PO SCH (08:11)
[2021-05-20] MEDS: TIMOLOL 0.5% SOLN OPHTH 5 ML BOTTLE EACHEYE SCH ×2 (08:14→16:36)
[2021-05-20] MEDS: BRIMONIDINE TARTRATE OPHT SOLN 5 ML BOTTLE EACHEYE SCH ×2 (08:14→16:36)
[2021-05-20] MEDS: ISOSORBIDE DINITRATE (20MG) 20 MG TABLET PO SCH ×2 (09:17→16:33)
[2021-05-20] MEDS: hydrALAZINE HCL 50 MG TABLET PO SCH ×3 (09:17→16:33)
[2021-05-20] MEDS: VALSARTAN 80 MG TABLET PO SCH (09:17)
--- NOTE | 2021-05-20 12:22 | NUR ---
RN NOTES PT TRIED TO TITRATE 02 THERAPY TO ROOM AIR, PT NOTED WITH SOB WITH 02 SAT DECREASED TO 87-89%. PLACED ON N/C AT 1LPM, PT NOTED SOB ON EXERTION WITH SP02 OF 90-92%. PT PUT BACK ON 02 VIA N/C AT 2LPM, PT TOLERATING WELL WITH SP02 OF 95-97%. SONS AT BEDSIDE AND AWARE. WILL CONTINUE TOO MONITOR.
[2021-05-20] MEDS: SOD FERRIC GLUC 125 MG in IV NS 0.9% 100 ML IV SCH (13:52)
--- NOTE | 2021-05-20 18:50 | NUR ---
CERTIFIED MIDWIFE CLOSING NOTES PT IN BED AWAKE AND RESTING AT SEMI-YUAN'S POSITION. FAMILY AT BEDSIDE. A/O X. ABLE TO MAKE NEEDS KNOWN. ON 02 VIA N/C AT 2LPM, TOLERATING WELL WITH NO SOB NOTED. TELE-MONITOR SHOWS A-PACING, HR ON THE 60'S, NO C/O CARDIAC DISTRESS DURING SHIFT. JAYSON MIDLINE INTACT, PATENT AND FLUSHES WELL. ALL NEEDS AND CARE ATTENDED WELL. SAFETY MEASURES IN PLACE: BED IN LOWEST LOCKED POSITION, SIDE-RAILS UP X2 AND CALL LIGHT WITHIN REACH. WILL ENDORSE MANINDER TO BAG SEALER NURSE.
--- NOTE | 2021-05-20 19:30 | NUR ---
RN OPENING NOTE PATIENT IN BED, AWAKE. PATIENT WITH FAMILY AT BEDSIDE. PATIENT IS A/O X 3, PATIENT IS ABLE TO MAKE NEEDS KNOWN. PATIENT IS ON 2 LPM OF 02, BREATHING EVEN AND UNLABORED, NO SOB AT THIS TIME. PATIENT DOES NOT COMPLAIN OF ANY PAIN. JAYSON MIDLINE PATENT AND INTACT, SALINE LOCKED. TELE MONITOR READS AV PACING 66 BPM. SAFETY MEASURES IN PLACE: BED LOCKED AND IN LOWEST POSITION, CALL LIGHT WITHIN REACH, SIDE RAILS UP. WILL MONITOR PATIENT CLOSELY.
[2021-05-20] MEDS: ATORVASTATIN 10 MG TABLET PO SCH (21:11)
[2021-05-20] MEDS: ZOLPIDEM TARTRATE 5 MG TABLET PO PRN (21:12)
--- NOTE | 2021-05-20 23:45 | NUR ---
RN NOTE PATIENT'S BP 166/65. ADMINISTERED SCHEDULED METOPROLOL, WILL RECHECK IN AN HOUR.
[2021-05-21] VITALS (7 sets, daily range): BP systolic 97–180; BP diastolic 45–87
[2021-05-21] MEDS: hydrALAZINE HCL IV 20 MG VIAL IV PRN (01:10)
--- NOTE | 2021-05-21 01:10 | NUR ---
RN NOTE RECHECK WAS 175/70, HYDRALAZINE IV GIVEN. WILL REASSESS MED EFFECTIVENESS.
[2021-05-21] MEDS: METOPROLOL TARTRATE 50 MG TABLET PO SCH ×3 (05:50→17:36)
--- NOTE | 2021-05-21 06:45 | NUR ---
RN CLOSING NOTE PATIENT IN BED, EYES OPEN. PATIENT IS ABLE TO MAKE NEEDS KNOWN. PATIENT IS MILDLY FORGETFUL. PATIENT CONTINUES TO HAVE SOB, KEPT ON 2 LPM 95-96% O2 SAT. TRIED TITRATING O2 DOWN, PATIENT DESATTS TO 90% 1 L. TELE MONITOR READS AV PACING 62 BPM. CHIEF ANALYTICS OFFICER REPORTS THAT QRS WIDENED FOR A FEW MINS THEN WENT BACK TO BASELINE. PATIENT DOES NOT REPORT ANY CHEST PAIN/GENERAL PAIN AT THIS TIME. SAFETY MEASURES IMPLEMENTED, ALL NEEDS MET AND ATTENDED, ALL ORDERS CARRIED OUT. WILL ENDORSE TO DAY SHIFT NURSE FOR MANINDER.
[2021-05-21 07:26] LABS: CALCIUM, SERUM 8.4 mg/dL (8.5-10.1); CREATININE 1.3 mg/dL (0.6-1.3); POTASSIUM 3.7 mmol/L (3.5-5.1)
--- NOTE | 2021-05-21 07:35 | NUR ---
RN OPENING NOTES Patient seen in bed with oxygen via nasal cannula at 2LPM, respirations even and unlabored, no apparent distress noted, no SOB, denies any pain or discomfort at this time. Safety measures maintained, brakes locked, side rails up X 2. Call light left within reach, will monitor closely for any changes.
[2021-05-21] MEDS: FLECAINIDE ACETATE (100 MG) 100 MG TABLET PO SCH ×2 (08:40→17:35)
[2021-05-21] MEDS: LEVOTHYROXINE SODIUM 50 MCG TABLET PO SCH (08:40)
[2021-05-21] MEDS: hydrALAZINE HCL 50 MG TABLET PO SCH ×3 (08:41→17:37)
[2021-05-21] MEDS: TICAGRELOR 90 MG TABLET PO SCH ×2 (08:41→17:36)
[2021-05-21] MEDS: VALSARTAN 80 MG TABLET PO SCH (08:42)
[2021-05-21] MEDS: ISOSORBIDE DINITRATE (20MG) 20 MG TABLET PO SCH ×2 (08:42→17:36)
[2021-05-21] MEDS: PANTOPRAZOLE 40 MG TABLET.DR PO SCH (08:42)
[2021-05-21] MEDS: CEFEPIME 1 GM in IV D5W 50 ML IV SCH (08:43)
[2021-05-21] MEDS: ENSURE ENLIVE 237 ML LIQUID (VANILLA) PO SCH ×3 (08:43→17:37)
[2021-05-21] MEDS: BRIMONIDINE TARTRATE OPHT SOLN 5 ML BOTTLE EACHEYE SCH ×2 (08:56→17:56)
[2021-05-21] MEDS: TIMOLOL 0.5% SOLN OPHTH 5 ML BOTTLE EACHEYE SCH ×2 (08:57→17:56)
[2021-05-21] MEDS ORDERED: ISOS40TA12 PO (10:49)
[2021-05-21] MEDS ORDERED: TICA90TA PO (10:49)
[2021-05-21] MEDS ORDERED: HYDR100T27 PO (10:49)
[2021-05-21] MEDS: VANCOMYCIN 1 GM in IV D5W 250ml IV SCH (15:00)
--- NOTE | 2021-05-21 15:00 | NUR ---
VANCO TROUGH CAME BACK AT 22H, VANCO ATB DOSE IS HELD, PHARMACY NOTIFIED SINCE TROUGH LEVEL IS >20.
--- NOTE | 2021-05-21 18:16 | NUR ---
RN CLOSING NOTES Patient in bed, AOX4, can make needs known, able to follow commands, denies any pain or discomfort at this time, no apparent distress noted. Respirations even and unlabored, no SOB. Skin warm to touch, no pallor or cyanosis noted. Safety measures maintained, brakes locked, side rails up X 2. All needs attended, call light left within reach, will endorse to next shift for continuity of care.
--- NOTE | 2021-05-21 20:06 | NUR ---
RN OPENING NOTE PATIENT IN THE CHAIR SITTING COMFORTABLY WITH LEGS UP ON ANOTHER CHAIR, A FAMILY MEMBER IS WITH PATIENT IN THE ROOM. PATIENT A/OX4. NO S/S OF APPARENT DISTRESS AT THIS TIME. OXYGEN IN PLACE 2LPM VIA NC. MANAGER SAS READING SINUS RHYTHM 60'S. NO FLUIDS RUNNING AT THIS TIME. LINE FLUSHED WITH NS. WILL CONTINUE TO MONITOR PATIENT.
[2021-05-21] MEDS: ZOLPIDEM TARTRATE 5 MG TABLET PO PRN (21:51)
[2021-05-21] MEDS: ATORVASTATIN 10 MG TABLET PO SCH (21:51)
--- NOTE | 2021-05-21 21:51 | NUR ---
RN NOTE PATIENT REQUESTED FOR HER AMBIEN, REPORTED SHE CANNOT SLEEP WITHOUT IT ESPECIALLY SHE IS GOING TO HAVE A ROOM MATE. GIVEN AMBIEN 5MG AT THIS TIME.
[2021-05-22] VITALS: BP 169/77
[2021-05-22] MEDS: METOPROLOL TARTRATE 50 MG TABLET PO SCH ×3 (00:53→13:14)
[2021-05-22] MEDS: hydrALAZINE HCL IV 20 MG VIAL IV PRN (00:54)
--- NOTE | 2021-05-22 01:01 | NUR ---
RN NOTE PATIENT BLOOD PRESSURE 169/77 UPON RE-CHECK. PATIENT GIVEN HYDRALAZINE HYDROCHLORIDE 10MG PRN FOR SBP >160. PULSE 61. WILL CONTINUE TO MONITOR PATIENT.
[2021-05-22 04:00] VITALS: BP 175/68
--- NOTE | 2021-05-22 06:02 | NUR ---
program director cable television note patient bp 175/68 upon rechecked. called [facility] and talked to Dr. Black. but according to patient it is normal for her bp to be high like that in the am. checked recent v/s from past days and it's been consistently high. no new md order. did give the scheduled metoprolol for 0600. will continue to monitor patient.
[2021-05-22 06:45] LABS: CALCIUM, SERUM 8.4 mg/dL (8.5-10.1); CREATININE 1.1 mg/dL (0.6-1.3); POTASSIUM 3.5 mmol/L (3.5-5.1)
--- NOTE | 2021-05-22 07:32 | NUR ---
tele closing note no significant change. report given to [facility] for continuity of care.
--- NOTE | 2021-05-22 07:49 | NUR ---
RN OPENING NOTES Patient seen lying in bed, respirations even and unlabored, on oxygen via nasal cannula at 2LPM, no apparent distress noted, no SOB, denies any pain or discomfort at this time, no dizziness, no headache at this time. Call light left within reach, safety measures maintained, brakes locked, side rails up X 2, will monitor closely for any changes.
[2021-05-22 08:00] VITALS: BP 184/76
[2021-05-22] MEDS: CEFEPIME 1 GM in IV D5W 50 ML IV SCH (08:37)
[2021-05-22] MEDS: FLECAINIDE ACETATE (100 MG) 100 MG TABLET PO SCH (08:37)
[2021-05-22] MEDS: TICAGRELOR 90 MG TABLET PO SCH (08:37)
[2021-05-22] MEDS: LEVOTHYROXINE SODIUM 50 MCG TABLET PO SCH (08:38)
[2021-05-22] MEDS: PANTOPRAZOLE 40 MG TABLET.DR PO SCH (08:38)
[2021-05-22] MEDS: VALSARTAN 80 MG TABLET PO SCH (08:38)
[2021-05-22] MEDS: hydrALAZINE HCL 50 MG TABLET PO SCH ×2 (08:39→13:14)
[2021-05-22] MEDS: ISOSORBIDE DINITRATE (20MG) 20 MG TABLET PO SCH (08:39)
[2021-05-22] MEDS: ENSURE ENLIVE 237 ML LIQUID (VANILLA) PO SCH ×2 (08:40→13:07)
[2021-05-22] MEDS: TIMOLOL 0.5% SOLN OPHTH 5 ML BOTTLE EACHEYE SCH (09:00)
[2021-05-22] MEDS: BRIMONIDINE TARTRATE OPHT SOLN 5 ML BOTTLE EACHEYE SCH (09:01)
[2021-05-22] MEDS: VANCOMYCIN 1 GM in IV D5W 250ml IV SCH (09:01)
[2021-05-22 12:00] VITALS: BP 148/61
[2021-05-22 13:14] VITALS: BP 142/68
--- NOTE | 2021-05-22 15:30 | NUR ---
BERRY PICKER NOTES PT IN BED, AWAKE, ALERT AND ORIENTED, DENIES PAIN, ON O2 AT 2LPM VIA N/C, NO SOB NOTED, O2 SAT OF 98%, SEEN BY DR. MERRILL, DISCHARGE AND MEDICATION INSTRUCTIONS DISCUSSED WITH SON LUH, VERBALIZED UNDERSTANDING, NEW PRESCRIPTIONS SENT BY MD ELECTRONICALLY TO PT'S OWN PHARMACY AT [facility], VERIFIED RECEIPT. BELONGINGS ACCOUNTED FOR, ASSISTED TO HOSPITAL LOBBY VIA WHEELCHAIR AND WITH PORTABLE O2, LEFT VIA PRIVATE CAR IN STABLE CONDITION.
[2021-05-23] MEDS ORDERED: VANCOMYCIN 0.75 GM in IV D5W 250 ML IV SCH (09:00)
== END 2021-05-22 15:00 | disposition home health service (06) | DRG 246 ==
LOC: ICU 02:47 → TELE 05-17 14:44
PROVIDERS: ADMIT Student in an Organized Health Care Education/Training Program
PROC: 05HB33Z Insertion of Infusion Device into Right Basilic Vein, Percutaneous Approach (ICD-10-PCS; 2021-05-15)
PROC: 027034Z Dilation of Coronary Artery, One Artery with Drug-eluting Intraluminal Device, Percutaneous Approach (ICD-10-PCS; principal; 2021-05-16)
PROC: 4A023N7 Measurement of Cardiac Sampling and Pressure, Left Heart, Percutaneous Approach (ICD-10-PCS; 2021-05-16)
PROC: B211YZZ Fluoroscopy of Multiple Coronary Arteries using Other Contrast (ICD-10-PCS; 2021-05-16)
PROC: B215YZZ Fluoroscopy of Left Heart using Other Contrast (ICD-10-PCS; 2021-05-16)
PROC: B34HZZZ Ultrasonography of Right Upper Extremity Arteries (ICD-10-PCS; 2021-05-16)
DX: I21.4 Non-ST elevation (NSTEMI) myocardial infarction (principal); I50.31 Acute diastolic (congestive) heart failure; N17.0 Acute kidney failure with tubular necrosis; E44.1 Mild protein-calorie malnutrition; E87.1 Hypo-osmolality and hyponatremia; I24.9 Acute ischemic heart disease, unspecified; E03.9 Hypothyroidism, unspecified; I25.10 Atherosclerotic heart disease of native coronary artery without angina pectoris; Z95.5 Presence of coronary angioplasty implant and graft; E78.5 Hyperlipidemia, unspecified; D63.8 Anemia in other chronic diseases classified elsewhere; I11.0 Hypertensive heart disease with heart failure; E83.42 Hypomagnesemia; I25.2 Old myocardial infarction; R74.01 Elevation of levels of liver transaminase levels; Z95.0 Presence of cardiac pacemaker; Z79.01 Long term (current) use of anticoagulants; D50.9 Iron deficiency anemia, unspecified; N27.1 Small kidney, bilateral; I34.0 Nonrheumatic mitral (valve) insufficiency; I27.20 Pulmonary hypertension, unspecified; N28.1 Cyst of kidney, acquired
CPT/HCPCS: 36410; 36415; 71045-TC; 71250-TC; 76770-TC; 80048-TC; 80053-TC; 80061-TC; 80202-TC; 82728-TC; 83540-TC; 83735-TC; 83880; 84100-TC; 84443-TC; 84484-TC; 85025-TC; 85610-TC; 85730-TC; 87081-TC; 92980; 93307-TC; 94799-TC; 97116-TC; 97530-TC; C1725; C1769; C9113; G0378; G0500; J0360; J0692; J1200; J1644; J2250; J2405; J2916; J2930; J3010; J3370; J3475; J3490; J7030; J7050; J7060; Q9967